=== PATIENT | male | born 1975 | race Two or more races ===

== ENCOUNTER → 2017-12-09 | Emergency (ER) | payer OTHER ==
[~2017-12-09] VITALS: Ht 185.4 cm; Wt 170.1 kg
[~2017-12-09] MED LIST: STELARA45 MG/0.1 SQ
== END | disposition home or self-care (01) ==
LOC: ER 12:27
DX: L03.115 Cellulitis of right lower limb (principal); I73.9 Peripheral vascular disease, unspecified